=== PATIENT | female | born 1965 | race Caucasian/White ===

== ENCOUNTER 2016-03-22 15:06 | Emergency (ER) | payer OTHER ==
[~2016-03-22] VITALS: Ht 157.5 cm; Wt 96.2 kg
[~2016-03-22 15:06] MED LIST: ADVAIR 250-501 EACH IH; ADVAIR 250/501 DISK IH; B-COMPLEX-VITA1 EACH PO; BUPROPION XL300 MG PO; CALCIUM600 MG PO; CELEBREX200 MG PO; D3-5050000 UNIT PO; DHEA 10 MG TAB1 EACH PO; INDOCIN SR75 MG PO; IRON325 M1 PO; MOBIC7.5 MG PO; NARCAN PO; NATURE-THROID65 MG PO; PAMELOR10 MG PO; PRILOSEC OTC20 MG PO; PROTONIX40 MG PO; TRAMADOL HCL50 MG PO; VITAMIN D5000 UNIT PO; ZANTAC150 MG PO
[2016-03-22 15:45] LABS: HEMATOCRIT 40.9 % (36.0-46.0); MCH 26.2 PG (29.0-34.0); MCHC 32.5 G/DL (30.0-36.0); MCV 80.5 FL (83-99); PLATELET COUNT 254 K/uL (156-360); RBC DIS.WIDTH-SD 43.7 % (39-53); RED BLOOD COUNT 5.08 M/uL (3.80-5.20); WHITE BLOOD COUNT 11.2 K/uL (4.1-10.2)
[2016-03-22 15:49] LABS: ADD MIUA? YES; BILIRUBIN NEGATIVE; BLOOD LARGE; COLOR YELLOW ((YELLOW)); GLUCOSE (STRIP) NEGATIVE; KETONES NEGATIVE; LEUKOCYTES NEGATIVE; NITRITE NEGATIVE; PH, URINE 5.5 (5-8); PROTEIN (STRIP) NEGATIVE; SPECIFIC GRAVITY 1.019 (1.000-1.030)
[2016-03-22 15:55] LABS: CHLORIDE 105 mEq/L (99-109); POTASSIUM 4.5 mEq/L (3.7-5.4); SODIUM 138 mEq/L (136-147)
[2016-03-22 15:58] LABS: GLUCOSE 96 mg/dL (70-99)
[2016-03-22 15:59] LABS: ANION GAP 10 MEQ/L (2-14); TOTAL BILIRUBIN 0.3 mg/dL (0.0-1.0)
[2016-03-22 16:01] LABS: ALKALINE PHOSPHATASE 93 IU/L (3-129); GFR ESTIMATE (CALCULATED) 55 mL/min/
[2016-03-22 16:02] LABS: UREA NITROGEN (BUN) 14 mg/dL (9-23)
[2016-03-22 16:05] LABS: LIPASE 11 U/L (1.0-51.0)
[2016-03-22 16:10] LABS: QUANTITATIVE HCG < 4.0 MIU/ML
[2016-03-22 17:05] LABS: BACTERIA 1+; CASTS NONE SEEN /LPF; CRYSTALS NONE SEEN; EPITHELIAL CELLS 1+; MUCUS 1+; UCUL ADDED? NO; WHITE BLOOD CELLS 0-5 /HPF (0-5)
[2016-03-22] MEDS ORDERED: PERCOCET 5/31 TABLET PO (17:53)
[2016-03-22] MEDS ORDERED: FLOMAX0.4 MG PO (17:53)
[2016-03-22] MEDS ORDERED: ZOFRAN ODT4 MG PO (17:53)
[2016-03-22 18:20] VITALS: BP 130/78
[2016-03-28] MEDS ORDERED: TAMSULOSIN HCL0.4 MG PO (16:01)
[2016-03-28] MEDS ORDERED: PERCOCET 5/31 TABLET PO (16:01)
[2016-03-28] MEDS ORDERED: ZOFRAN4 MG PO (16:02)
[2016-03-28] MEDS ORDERED: PAMELOR25 MG PO (16:02)
[2016-03-28] MEDS ORDERED: VITAMIN D10000 UNIT PO (16:03)
[2016-03-28] MEDS ORDERED: [UNRECOGNIZED DRUG - OTHER] PO (16:04)
== END 2016-03-22 18:22 | disposition home or self-care (01) ==
LOC: EXP 15:06 → EME 15:06 → EXP 18:22
DX: N13.2 Hydronephrosis with renal and ureteral calculous obstruction (principal); R31.9 Hematuria, unspecified; J45.909 Unspecified asthma, uncomplicated; E03.9 Hypothyroidism, unspecified
CPT/HCPCS: 74176; 80053; 81003; 83690; 84702; 85027; 99281; 99284

== ENCOUNTER 2016-03-29 10:26 | Day surgery (SDC) | payer OTHER ==
[~2016-03-29] VITALS: Ht 157.5 cm; Wt 96.2 kg
[~2016-03-29 10:26] MED LIST changes: +FLOMAX0.4 MG PO; +PAMELOR25 MG PO; +PERCOCET 5/31 TABLET PO; +TAMSULOSIN HCL0.4 MG PO; +VITAMIN D10000 UNIT PO; +ZOFRAN ODT4 MG PO; +ZOFRAN4 MG PO; +[UNRECOGNIZED DRUG - OTHER] PO
[2016-03-29 11:02] VITALS: BP 131/71
[2016-03-29 13:35] VITALS: BP 137/73
== END 2016-03-29 14:15 | disposition home or self-care (01) ==
LOC: SDC
PROVIDERS: Urology
DX: N20.1 Calculus of ureter (principal); J45.909 Unspecified asthma, uncomplicated; K21.9 Gastro-esophageal reflux disease without esophagitis; R01.1 Cardiac murmur, unspecified; E03.9 Hypothyroidism, unspecified; M79.7 Fibromyalgia
CPT/HCPCS: 74000; 76000; 82365 90; C1876; J0690; J1100; J1170; J2250; J2405; J2765; J3010; J7050

== ENCOUNTER 2017-04-23 10:29 | Emergency (ER) | payer OTHER ==
[~2017-04-23] VITALS: Ht 157.5 cm; Wt 95.3 kg
[2017-04-23 12:17] VITALS: BP 130/78
== END 2017-04-23 12:18 | disposition home or self-care (01) ==
LOC: EME 10:29
DX: S93.601A Unspecified sprain of right foot, initial encounter (principal); W10.9XXA Fall (on) (from) unspecified stairs and steps, initial encounter
CPT/HCPCS: 73630; 99281; 99284